=== PATIENT | male | born 1995 | race Caucasian/White ===

== ENCOUNTER 2016-09-14 11:59 | Emergency (ER) | payer MEDICAID, OTHER ==
[~2016-09-14] VITALS: Ht 180.3 cm; Wt 62.0 kg
[~2016-09-14 11:59] MED LIST: CIPR500T2 PO; IBUP800T23 PO
[2016-09-14 12:01] VITALS: BP 151/85; PULSE 96; RESP 15; TEMP 98.1; O2SAT 99
[2016-09-14] MEDS ORDERED: SILV1CRE20 TOPICAL (13:26)
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
[2016-09-14] MEDS ORDERED: SILVER SULFADIAZINE 1% CR 50 GM JAR TOPICAL ONE (13:30)
== END 2016-09-14 14:00 | disposition home or self-care (01) ==
LOC: NEPB 11:59
DX: T59.891A Toxic effect of other specified gases, fumes and vapors, accidental (unintentional), initial encounter (principal); F17.210 Nicotine dependence, cigarettes, uncomplicated; Y93.89 Activity, other specified
CPT/HCPCS: 16020

== ENCOUNTER 2017-02-03 14:21 | Emergency (ER) | payer SELFPAY ==
[~2017-02-03] VITALS: Ht 180.3 cm; Wt 65.0 kg
[~2017-02-03 14:21] MED LIST changes: +SILV1CRE20 TOPICAL
[2017-02-03 14:27] VITALS: BP 148/87; PULSE 90; RESP 20; TEMP 98.6; O2SAT 99
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
== END 2017-02-03 16:46 | disposition home or self-care (01) ==
LOC: NEPK 14:21
DX: S41.111A Laceration without foreign body of right upper arm, initial encounter (principal); F90.9 Attention-deficit hyperactivity disorder, unspecified type; J45.909 Unspecified asthma, uncomplicated; F17.200 Nicotine dependence, unspecified, uncomplicated; Z79.899 Other long term (current) drug therapy; W45.8XXA Other foreign body or object entering through skin, initial encounter; Y92.59 Other trade areas as the place of occurrence of the external cause
CPT/HCPCS: 12002